=== PATIENT | female | born 1990 | race Caucasian/White ===

== ENCOUNTER 2016-11-26 18:22 | Emergency (ER) | payer OTHER ==
[~2016-11-26] VITALS: Wt 77.1 kg
[~2016-11-26 18:22] MED LIST: 'PARAFON FORTE500 M1 PO; AMOXICILLIN250 MG PO; AMOXICILLIN500 MG PO; ANAPROX DS550 MG PO; ANTIVERT/2525 MG PO; ANUSOL-HC25 MG R; BIRTH CONTROL1 EACH PO; CELEXA20 MG PO; CIPROFLOXACIN500 MG PO; CLARITIN10 MG PO; CLEOCIN HCL300 MG PO; COLACE100 MG PO; HYDROCODONE BIT1 T11 PO; IMPLANON68 MG ID; LAMICTAL25 MG PO; MEDROL DOSEPAK4 MG PO; MOTRIN800 MG PO; NAPROSYN500 MG PO; NKHM; NORCO 325 MG-51 TAB PO; PEN-VK500 MG PO; PENICILLIN VK500 MG PO; PERIDEX 480 ML480 ML PO; PHENERGAN W/ DE30 ML PO; PONSTEL250 MG PO; PREDNICOT10 MG PO; PREDNICOT20 MG PO; PROAIR HFA0.09 MG/AC INH; ROBITUSSIN AC 10 MG/ PO; TRAZODONE50 MG PO; TRIMOX500 MG PO; ZANTAC 150150 MG PO; ZITHROMAX250 MG PO; ZYRTEC10 M1 PO
[2016-11-26] MEDS ORDERED: ZITHROMAX250 MG PO (19:44)
[2016-11-26] MEDS ORDERED: PREDNISONE20 M1 PO (19:44)
== END 2016-11-26 20:12 | disposition home or self-care (01) ==
LOC: ED 18:22
DX: J20.9 Acute bronchitis, unspecified (principal); F17.200 Nicotine dependence, unspecified, uncomplicated; Z79.899 Other long term (current) drug therapy

== ENCOUNTER 2017-03-09 10:48 | Emergency (ER) | payer OTHER ==
[~2017-03-09] VITALS: Ht 157.4 cm; Wt 77.1 kg
[~2017-03-09 10:48] MED LIST changes: +PREDNISONE20 M1 PO
[2017-03-09] MEDS ORDERED: FLUOXETINE HYDR20 M1 PO (11:13)
[2017-03-09] MEDS ORDERED: HYDROXYZINE HCL25 M1 PO (11:14)
[2017-03-09 11:47] LABS: BILIRUBIN NEGATIVE (NEGATIVE); BLOOD NEGATIVE (NEGATIVE); CLARITY CLOUDY (CLEAR); COLOR YELLOW (YELLOW); GLUCOSE NEGATIVE (NEGATIVE); KETONE NEGATIVE (NEGATIVE); LEUKO ESTERASE TRACE (NEGATIVE); NITRITE NEGATIVE (NEGATIVE); PH 6.5 (5.0-9.0); UROBILINOGEN 0.2 E.U./dl (0.2-1.0)
[2017-03-09 11:54] LABS: BASO # 0.1 10*3/uL (0.0-0.1); BASO % 0.8 % (0.0-1.0); EOS # 0.4 10*3/uL (0.0-0.4); EOS % 4.1 % (1.0-4.0); HEMATOCRIT 42.4 % (37.0-47.0); HEMOGLOBIN 13.7 g/dl (12.0-16.0); LYMPH # 2.7 10*3/uL (1.3-4.4); LYMPH % 30.2 % (27.0-41.0); MEAN CELL VOLUME 87.1 fl (81.0-99.0); MEAN CORPUSCULAR HGB 28.1 pg (27.0-31.0); MEAN CORPUSCULAR HGB CONC 32.3 g/dl (33.0-37.0); MEAN PLATELET VOLUME 9.4 fl (9.6-12.3); MONO # 0.9 10*3/uL (0.1-1.0); NEUT # 4.8 10*3/uL (2.3-7.9); NEUT % 54.7 % (47.0-73.0); PLATELET COUNT AUTOMATED 416 10*3/uL (130-400); RED BLOOD COUNT 4.87 10*6/uL (4.10-5.10); RED CELL DISTRI WIDTH 13.6 % (0-14.5); WHITE BLOOD COUNT 8.9 10*3/uL (4.8-10.8)
[2017-03-09 12:07] LABS: BACTERIA 2+
[2017-03-09 12:08] LABS: ALKALINE PHOSPHATASE 76 U/L (45-117); BUN 10 mg/dl (7-24); CHLORIDE 108 mmol/L (98-107); CREATININE 0.94 mg/dL (0.55-1.02); POTASSIUM 4.3 mmol/L (3.5-5.1); SGOT/AST 16 IU/L (3-35); SGPT/ALT 37 U/L (12-78); SODIUM 141 mmol/L (136-145); TOTAL PROTEIN 7.7 gm/dL (6.4-8.2)
[2017-03-09] MEDS ORDERED: IMODIUM A-D2 M2 PO (12:24)
[2017-03-09] MEDS ORDERED: ZOFRAN ODT4 MG SL (12:24)
== END 2017-03-09 12:29 | disposition home or self-care (01) ==
LOC: ED 10:48
PROVIDERS: Emergency Medicine
DX: K52.9 Noninfective gastroenteritis and colitis, unspecified (principal); F17.200 Nicotine dependence, unspecified, uncomplicated; Z79.899 Other long term (current) drug therapy

== ENCOUNTER 2017-03-24 14:31 | Emergency (ER) | payer OTHER ==
[~2017-03-24] VITALS: Ht 160 cm; Wt 77.1 kg
[~2017-03-24 14:31] MED LIST changes: +FLUOXETINE HYDR20 M1 PO; +HYDROXYZINE HCL25 M1 PO; +IMODIUM A-D2 M2 PO; +ZOFRAN ODT4 MG SL
[2017-03-24] MEDS ORDERED: ROBITUSSIN DM 105 ML PO (14:51)
[2017-03-24] MEDS ORDERED: CLARITIN10 MG PO (14:51)
[2017-03-24] MEDS ORDERED: PREDNISONE10 MG PO (14:51)
[2017-03-24] MEDS ORDERED: FLONASE ALLERG9.9 ML NAS (14:51)
== END 2017-03-24 16:11 | disposition home or self-care (01) ==
LOC: ED 14:31
DX: J20.9 Acute bronchitis, unspecified (principal); R03.0 Elevated blood-pressure reading, without diagnosis of hypertension; F17.200 Nicotine dependence, unspecified, uncomplicated; Z79.899 Other long term (current) drug therapy

== ENCOUNTER 2017-06-07 08:58 | Emergency (ER) | payer OTHER ==
[~2017-06-07 08:58] MED LIST changes: +FLONASE ALLERG9.9 ML NAS; +PREDNISONE10 MG PO; +ROBITUSSIN DM 105 ML PO
[2017-06-07] MEDS ORDERED: ROBAXIN500 M1 PO (09:47)
[2017-06-07] MEDS ORDERED: MOBIC7.5 MG PO (09:47)
== END 2017-06-07 09:56 | disposition home or self-care (01) ==
LOC: ED 08:58
DX: S13.4XXA Sprain of ligaments of cervical spine, initial encounter (principal); Z79.899 Other long term (current) drug therapy; X58.XXXA Exposure to other specified factors, initial encounter; Y93.89 Activity, other specified; Y92.89 Other specified places as the place of occurrence of the external cause; Y99.8 Other external cause status

== ENCOUNTER 2017-07-30 14:14 | Emergency (ER) | payer OTHER ==
[~2017-07-30] VITALS: Ht 160 cm; Wt 81.6 kg
[~2017-07-30 14:14] MED LIST changes: +MOBIC7.5 MG PO; +ROBAXIN500 M1 PO
[2017-07-30] MEDS ORDERED: PREDNISONE20 M1 PO (14:52)
== END 2017-07-30 14:56 | disposition home or self-care (01) ==
LOC: ED 14:14
DX: L20.89 Other atopic dermatitis (principal); Z79.899 Other long term (current) drug therapy

== ENCOUNTER 2017-08-04 07:46 | Emergency (ER) | payer OTHER ==
[~2017-08-04] VITALS: Ht 157.4 cm; Wt 81.6 kg
== END 2017-08-04 10:35 | disposition home or self-care (01) ==
LOC: ED 07:46
DX: S92.511A Displaced fracture of proximal phalanx of right lesser toe(s), initial encounter for closed fracture (principal); F17.200 Nicotine dependence, unspecified, uncomplicated; Z79.899 Other long term (current) drug therapy; X58.XXXA Exposure to other specified factors, initial encounter; Y93.89 Activity, other specified; Y92.89 Other specified places as the place of occurrence of the external cause; Y99.9 Unspecified external cause status

== ENCOUNTER 2017-12-07 16:01 | Emergency (ER) | payer OTHER ==
[~2017-12-07] VITALS: Ht 157.4 cm; Wt 77.1 kg
[2017-12-07] MEDS ORDERED: PREDNISONE20 M1 PO (17:01)
[2017-12-07] MEDS ORDERED: NAPROSYN500 MG PO (17:01)
[2017-12-07] MEDS ORDERED: LIDEX 0.05% CRE15 GM T (17:01)
== END 2017-12-07 17:41 | disposition home or self-care (01) ==
LOC: ED 16:01
DX: M25.531 Pain in right wrist (principal); L40.9 Psoriasis, unspecified; F17.200 Nicotine dependence, unspecified, uncomplicated; Z79.899 Other long term (current) drug therapy

== ENCOUNTER 2018-05-29 09:05 | Emergency (ER) | payer SELFPAY ==
[~2018-05-29] VITALS: Wt 74.8 kg
[~2018-05-29 09:05] MED LIST changes: +LIDEX 0.05% CRE15 GM T
[2018-05-29] MEDS ORDERED: TAMIFLU 75MG CA75 MG PO (09:57)
== END 2018-05-29 10:01 | disposition home or self-care (01) ==
LOC: ED 09:05
DX: R05 Cough (principal); R50.9 Fever, unspecified; R09.89 Other specified symptoms and signs involving the circulatory and respiratory systems; R19.7 Diarrhea, unspecified; Z79.899 Other long term (current) drug therapy

== ENCOUNTER 2018-09-18 00:33 | Emergency (ER) | payer OTHER ==
[~2018-09-18] VITALS: Ht 157.4 cm; Wt 68.0 kg
[~2018-09-18 00:33] MED LIST changes: +TAMIFLU 75MG CA75 MG PO
[2018-09-18 01:12] LABS: BILIRUBIN NEGATIVE (NEGATIVE); BLOOD NEGATIVE (NEGATIVE); CLARITY SL CLOUDY (CLEAR); COLOR YELLOW (YELLOW); GLUCOSE NEGATIVE (NEGATIVE); KETONE NEGATIVE (NEGATIVE); LEUKO ESTERASE NEGATIVE (NEGATIVE); NITRITE NEGATIVE (NEGATIVE); SPECIFIC GRAVITY >= 1.030 (1.005-1.030); UROBILINOGEN 0.2 E.U./dl (0.2-1.0)
[2018-09-18 01:13] LABS: BASO # 0.1 10*3/uL (0.0-0.1); BASO % 0.6 % (0.0-1.0); EOS # 0.2 10*3/uL (0.0-0.4); EOS % 1.9 % (1.0-4.0); HEMATOCRIT 40.1 % (37.0-47.0); HEMOGLOBIN 13.1 g/dl (12.0-16.0); LYMPH # 4.6 10*3/uL (1.3-4.4); LYMPH % 43.8 % (27.0-41.0); MEAN CELL VOLUME 88.9 fl (81.0-99.0); MEAN CORPUSCULAR HGB CONC 32.7 g/dl (33.0-37.0); MONO # 0.9 10*3/uL (0.1-1.0); MONO % 8.2 % (3.0-9.0); NEUT # 4.7 10*3/uL (2.3-7.9); NEUT % 45.2 % (47.0-73.0); PLATELET COUNT AUTOMATED 362 10*3/uL (130-400); RED BLOOD COUNT 4.51 10*6/uL (4.10-5.10); WHITE BLOOD COUNT 10.5 10*3/uL (4.8-10.8)
[2018-09-18 01:24] LABS: EPITHELIAL CELLS 20-25; WBC 0-2 wbc/hpf (0-5)
[2018-09-18 01:26] LABS: BUN 14 mg/dl (7-24); CHLORIDE 106 mmol/L (98-107); CREATININE 0.94 mg/dL (0.55-1.02); POTASSIUM 3.5 mmol/L (3.5-5.1); SODIUM 140 mmol/L (136-145)
[2018-09-18 01:31] LABS: BETA-HCG, QUANT < 1.0 mIU/mL (1-3)
== END 2018-09-18 02:34 | disposition home or self-care (01) ==
LOC: ED 00:33
PROVIDERS: Emergency Medicine Emergency Medical Services
DX: S39.012A Strain of muscle, fascia and tendon of lower back, initial encounter (principal); R10.9 Unspecified abdominal pain; M25.551 Pain in right hip; X58.XXXA Exposure to other specified factors, initial encounter; Y93.89 Activity, other specified; Y92.89 Other specified places as the place of occurrence of the external cause; Y99.0 Civilian activity done for income or pay

== ENCOUNTER 2019-02-11 00:37 | Emergency (ER) | payer OTHER ==
[~2019-02-11] VITALS: Ht 160 cm; Wt 63.5 kg
[2019-02-11 01:54] LABS: BILIRUBIN NEGATIVE (NEGATIVE); BLOOD TRACE-INTACT (NEGATIVE); CLARITY SL CLOUDY (CLEAR); COLOR YELLOW (YELLOW); GLUCOSE NEGATIVE (NEGATIVE); KETONE 1+ (NEGATIVE); LEUKO ESTERASE NEGATIVE (NEGATIVE); NITRITE NEGATIVE (NEGATIVE); PH 6.5 (5.0-9.0); UROBILINOGEN 0.2 E.U./dl (0.2-1.0)
[2019-02-11 02:01] LABS: BACTERIA TRACE; RBC 0-2 rbc/hpf (0-2); WBC 0-2 wbc/hpf (0-5)
[2019-02-11] MEDS ORDERED: CYCLOBENZAPRINE10 MG PO (02:44)
== END 2019-02-11 02:55 | disposition home or self-care (01) ==
LOC: ED 00:37
PROVIDERS: Emergency Medicine
DX: S29.012A Strain of muscle and tendon of back wall of thorax, initial encounter (principal); X58.XXXA Exposure to other specified factors, initial encounter; Y93.89 Activity, other specified; Y92.89 Other specified places as the place of occurrence of the external cause; Y99.8 Other external cause status

== ENCOUNTER 2019-03-07 15:45 | Emergency (ER) | payer OTHER ==
[~2019-03-07] VITALS: Ht 160 cm; Wt 63.5 kg
[~2019-03-07 15:45] MED LIST changes: +CYCLOBENZAPRINE10 MG PO
[2019-03-07] MEDS ORDERED: AMOXICILLIN500 M3 PO (16:49)
== END 2019-03-07 16:58 | disposition home or self-care (01) ==
LOC: ED 15:45
DX: B34.9 Viral infection, unspecified (principal); J02.9 Acute pharyngitis, unspecified; R11.10 Vomiting, unspecified; R50.9 Fever, unspecified

== ENCOUNTER 2019-05-18 14:32 | Emergency (ER) | payer OTHER ==
[~2019-05-18] VITALS: Ht 157.4 cm; Wt 61.2 kg
[~2019-05-18 14:32] MED LIST changes: +AMOXICILLIN500 M3 PO
[2019-05-18] MEDS ORDERED: EFFEXOR XR75 M1 PO (14:47)
[2019-05-18 15:13] LABS: BASO # 0.1 10*3/uL (0.0-0.1); BASO % 0.6 % (0.0-1.0); EOS # 0.1 10*3/uL (0.0-0.4); EOS % 0.6 % (1.0-4.0); HEMATOCRIT 39.2 % (37.0-47.0); HEMOGLOBIN 12.7 g/dl (12.0-16.0); LYMPH # 2.8 10*3/uL (1.3-4.4); LYMPH % 26.4 % (27.0-41.0); MEAN CELL VOLUME 89.7 fl (81.0-99.0); MEAN CORPUSCULAR HGB 29.1 pg (27.0-31.0); MEAN CORPUSCULAR HGB CONC 32.4 g/dl (33.0-37.0); MEAN PLATELET VOLUME 9.6 fl (9.6-12.3); MONO # 0.8 10*3/uL (0.1-1.0); MONO % 7.7 % (3.0-9.0); NEUT # 6.8 10*3/uL (2.3-7.9); NEUT % 64.4 % (47.0-73.0); PLATELET COUNT AUTOMATED 373 10*3/uL (130-400); RED BLOOD COUNT 4.37 10*6/uL (4.10-5.10); RED CELL DISTRI WIDTH 13.1 % (0-14.5); WHITE BLOOD COUNT 10.5 10*3/uL (4.8-10.8)
[2019-05-18 15:27] LABS: ALBUMIN 4.2 gm/dl (3.1-4.5); ALKALINE PHOSPHATASE 53 U/L (45-117); BUN 11 mg/dl (7-24); CHLORIDE 104 mmol/L (98-107); CREATININE 0.83 mg/dL (0.55-1.02); POTASSIUM 3.6 mmol/L (3.5-5.1); SGOT/AST 13 IU/L (3-35); SGPT/ALT 22 U/L (12-78); SODIUM 139 mmol/L (136-145); TOTAL PROTEIN 7.3 gm/dL (6.4-8.2)
[2019-05-18] MEDS ORDERED: CYCLOBENZAPRINE5 M3 PO (15:57)
[2019-05-18] MEDS ORDERED: Motrin,Rufen800 MG PO (15:57)
== END 2019-05-18 16:06 | disposition home or self-care (01) ==
LOC: ED 14:32
PROVIDERS: Physician Assistant
DX: M54.12 Radiculopathy, cervical region (principal); M25.512 Pain in left shoulder; Z79.899 Other long term (current) drug therapy

== ENCOUNTER 2020-01-11 10:56 | Emergency (ER) | payer OTHER ==
[~2020-01-11] VITALS: Ht 160 cm; Wt 65.8 kg
[~2020-01-11 10:56] MED LIST changes: +CYCLOBENZAPRINE5 M3 PO; +EFFEXOR XR75 M1 PO; +Motrin,Rufen800 MG PO
[2020-01-11] MEDS ORDERED: ERYTHROMYCIN OPH1 GM OPH (11:39)
[2020-01-11] MEDS ORDERED: IBUPROFEN600 MG PO (11:39)
== END 2020-01-11 11:42 | disposition home or self-care (01) ==
LOC: ED 10:56
DX: H00.011 Hordeolum externum right upper eyelid (principal); Z79.899 Other long term (current) drug therapy

== ENCOUNTER 2020-01-17 22:48 | Emergency (ER) | payer OTHER ==
[~2020-01-17] VITALS: Ht 157.4 cm; Wt 65.8 kg
[~2020-01-17 22:48] MED LIST changes: +ERYTHROMYCIN OPH1 GM OPH; +IBUPROFEN600 MG PO
[2020-01-18] MEDS ORDERED: PREDNISONE20 M1 PO (01:01)
[2020-01-18] MEDS ORDERED: ROBITUSSIN DM 101 OZ PO (01:01)
== END 2020-01-18 01:30 | disposition home or self-care (01) ==
LOC: ED 22:48
DX: J20.9 Acute bronchitis, unspecified (principal); F41.9 Anxiety disorder, unspecified; F32.9 Major depressive disorder, single episode, unspecified; Z79.899 Other long term (current) drug therapy

== ENCOUNTER → 2020-06-21 | Outpatient (CLI) | payer OTHER ==
[~2020-06-21] MED LIST changes: +ROBITUSSIN DM 101 OZ PO
== END | disposition home or self-care (01) ==
LOC: US 12:43
PROVIDERS: ATTEND Nurse Practitioner Women's Health
DX: O34.81 Maternal care for other abnormalities of pelvic organs, first trimester (principal); N83.12 Corpus luteum cyst of left ovary; Z3A.10 10 weeks gestation of pregnancy

== ENCOUNTER → 2020-08-18 | Outpatient (CLI) | payer OTHER ==
[2020-08-18 13:52] LABS: BASO % 0.4 % (0.0-1.0); EOS # 0.2 10*3/uL (0.0-0.4); HEMATOCRIT 34.1 % (37.0-47.0); LYMPH # 2.3 10*3/uL (1.3-4.4); LYMPH % 22.4 % (27.0-41.0); MEAN CELL VOLUME 90.2 fl (81.0-99.0); MEAN CORPUSCULAR HGB 28.3 pg (27.0-31.0); MEAN CORPUSCULAR HGB CONC 31.4 g/dl (33.0-37.0); MONO # 0.8 10*3/uL (0.1-1.0); MONO % 7.4 % (3.0-9.0); NEUT # 6.9 10*3/uL (2.3-7.9); NEUT % 67.2 % (47.0-73.0); PLATELET COUNT AUTOMATED 474 10*3/uL (130-400); RED BLOOD COUNT 3.78 10*6/uL (4.10-5.10); RED CELL DISTRI WIDTH 12.9 % (0-14.5); WHITE BLOOD COUNT 10.3 10*3/uL (4.8-10.8)
== END | disposition home or self-care (01) ==
LOC: LAB 13:23 → US 14:30
PROVIDERS: ATTEND Obstetrics & Gynecology
DX: Z34.02 Encounter for supervision of normal first pregnancy, second trimester (principal); Z3A.19 19 weeks gestation of pregnancy

== ENCOUNTER 2020-12-19 19:12 | Emergency (ER) | payer OTHER ==
[~2020-12-19] VITALS: Ht 157.4 cm; Wt 70.3 kg
[2020-12-19 19:52] LABS: BILIRUBIN Negative (Negative); BLOOD Trace-Lysed (Negative); CLARITY Clear (Clear); COLOR Yellow (Yellow); GLUCOSE Negative (Negative); KETONE Negative (Negative); LEUKO ESTERASE 2+ (Negative); NITRITE Negative (Negative); PH 6.5 (4.5-8.0)
[2020-12-19 20:11] LABS: BACTERIA TRACE; MUCOUS TRACE; WBC 21-30 wbc/hpf (0-5)
[2020-12-19 21:25] LABS: BASO % 0.3 % (0.0-1.0); EOS % 0.1 % (1.0-4.0); HEMATOCRIT 35.8 % (37.0-47.0); LYMPH # 1.2 10*3/uL (1.3-4.4); LYMPH % 11.7 % (27.0-41.0); MEAN CELL VOLUME 88.2 fl (81.0-99.0); MEAN CORPUSCULAR HGB 27.8 pg (27.0-31.0); MEAN CORPUSCULAR HGB CONC 31.6 g/dl (33.0-37.0); MEAN PLATELET VOLUME 8.2 fl (9.6-12.3); MONO # 0.4 10*3/uL (0.1-1.0); MONO % 3.7 % (3.0-9.0); NEUT # 8.5 10*3/uL (2.3-7.9); NEUT % 83.4 % (47.0-73.0); PLATELET COUNT AUTOMATED 577 10*3/uL (130-400); RED BLOOD COUNT 4.06 10*6/uL (4.10-5.10); RED CELL DISTRI WIDTH 12.9 % (0-14.5); WHITE BLOOD COUNT 10.1 10*3/uL (4.8-10.8)
[2020-12-19 21:40] LABS: ALBUMIN 2.7 gm/dl (3.1-4.5); ALKALINE PHOSPHATASE 98 U/L (45-117); BUN 8 mg/dl (7-24); CHLORIDE 107 mmol/L (98-107); CREATININE 0.83 mg/dL (0.55-1.02); POTASSIUM 3.9 mmol/L (3.5-5.1); SGOT/AST 11 IU/L (3-35); SGPT/ALT 23 U/L (12-78); SODIUM 138 mmol/L (136-145); TOTAL PROTEIN 7.2 gm/dL (6.4-8.2)
[2020-12-20] MEDS ORDERED: CEPHALEXIN500 M1 PO (00:55)
== END 2020-12-20 01:03 | disposition home or self-care (01) ==
LOC: ED 19:12
PROVIDERS: Emergency Medicine
DX: N39.0 Urinary tract infection, site not specified (principal); Z20.822 Contact with and (suspected) exposure to COVID-19; F17.200 Nicotine dependence, unspecified, uncomplicated; Z79.899 Other long term (current) drug therapy

== ENCOUNTER → 2021-03-17 | Outpatient (CLI) | payer OTHER ==
[~2021-03-17] MED LIST changes: +CEPHALEXIN500 M1 PO
== END | disposition home or self-care (01) ==
LOC: COVID19 16:32
PROVIDERS: ATTEND Internal Medicine
DX: U07.1 COVID-19 (principal)

== ENCOUNTER → 2021-08-29 | Outpatient (CLI) | payer OTHER | END | disposition home or self-care (01) | LOC: RAD 11:25 | PROVIDERS: ATTEND Family Medicine | DX: M25.541 Pain in joints of right hand (principal) ==

== ENCOUNTER → 2021-10-14 | Outpatient (CLI) | payer OTHER | END | disposition home or self-care (01) | LOC: RAD 14:05 | PROVIDERS: ATTEND Family Medicine | DX: M79.642 Pain in left hand (principal) ==

== ENCOUNTER → 2021-12-06 | Outpatient (CLI) | payer OTHER ==
[2021-12-07 08:08] LABS: RHEUMATOID FACTOR <10.0 IU/mL (<14.0)
== END | disposition home or self-care (01) ==
LOC: LAB 09:44
PROVIDERS: ATTEND Family Medicine
DX: M79.642 Pain in left hand (principal); M79.641 Pain in right hand

== ENCOUNTER 2022-03-01 20:10 | Emergency (ER) | payer OTHER ==
[~2022-03-01] VITALS: Ht 157.4 cm; Wt 63.5 kg
== END 2022-03-02 00:10 | disposition left against medical advice (07) ==
LOC: ED 20:10
DX: Z53.21 Procedure and treatment not carried out due to patient leaving prior to being seen by health care provider (principal)

== ENCOUNTER 2022-05-31 20:32 | Emergency (ER) | payer OTHER ==
[~2022-05-31] VITALS: Ht 160 cm; Wt 68.0 kg
[2022-05-31 21:11] LABS: HEMATOCRIT 42.7 % (37.0-47.0); MEAN CELL VOLUME 87.3 fl (81.0-99.0); MEAN CORPUSCULAR HGB CONC 32.1 g/dl (33.0-37.0); MEAN PLATELET VOLUME 8.9 fl (9.6-12.3); PLATELET COUNT AUTOMATED 357 10*3/uL (130-400); RED BLOOD COUNT 4.89 10*6/uL (4.10-5.10); RED CELL DISTRI WIDTH 13.2 % (0-14.5)
[2022-05-31 21:21] LABS: MANUAL DIFF REFLEX YES
[2022-05-31 21:27] LABS: ALKALINE PHOSPHATASE 57 U/L (46-116); BUN 15 mg/dl (9-23); CHLORIDE 109 mmol/L (98-107); POTASSIUM 3.4 mmol/L (3.4-5.1); SGPT/ALT 18 U/L (10-49); TOTAL PROTEIN 7.1 gm/dL (6.0-8.0)
[2022-05-31 21:43] LABS: PLATELET SUFFICIENCY NORMAL (NORMAL); TOTAL CELLS COUNTED 100 #CELLS; TOXIC GRANULATION SLIGHT
== END 2022-05-31 22:47 | disposition home or self-care (01) ==
LOC: ED 20:32
PROVIDERS: Internal Medicine
DX: B34.9 Viral infection, unspecified (principal); Z79.899 Other long term (current) drug therapy

== ENCOUNTER 2022-08-30 07:28 | Emergency (ER) | payer OTHER ==
[~2022-08-30] VITALS: Ht 157.4 cm; Wt 59.0 kg
[2022-08-30] MEDS ORDERED: CYCLOBENZAPRINE10 MG PO (08:01)
[2022-08-30] MEDS ORDERED: PREDNISONE50 MG PO (08:01)
== END 2022-08-30 08:51 | disposition home or self-care (01) ==
LOC: ED 07:28
DX: S39.012A Strain of muscle, fascia and tendon of lower back, initial encounter (principal); F41.9 Anxiety disorder, unspecified; F32.A Depression, unspecified; Z98.890 Other specified postprocedural states; X58.XXXA Exposure to other specified factors, initial encounter; Y93.89 Activity, other specified; Y92.89 Other specified places as the place of occurrence of the external cause; Y99.8 Other external cause status

== ENCOUNTER → 2022-09-11 | Outpatient (CLI) | payer OTHER ==
[~2022-09-11] MED LIST changes: +PREDNISONE50 MG PO
== END | disposition home or self-care (01) ==
LOC: RAD 10:11
PROVIDERS: ATTEND Family Medicine
DX: M54.50 Low back pain, unspecified (principal)

== ENCOUNTER 2024-06-23 09:16 | Emergency (ER) | payer SELFPAY ==
[~2024-06-23] VITALS: Ht 157.4 cm; Wt 71.7 kg
[2024-06-23] MEDS ORDERED: LORazepam 0.5 MG TAB PO ONE (10:10)
[2024-06-23 10:33] LABS: BASO % 0.6 % (0.0-1.0); EOS # 0.1 10*3/uL (0.0-0.4); EOS % 1.1 % (1.0-4.0); HEMATOCRIT 44.4 % (37.0-47.0); MEAN CELL VOLUME 88.6 fl (81.0-99.0); MEAN CORPUSCULAR HGB 27.7 pg (27.0-31.0); MEAN CORPUSCULAR HGB CONC 31.3 g/dl (33.0-37.0); MEAN PLATELET VOLUME 9.2 fl (9.6-12.3); MONO # 0.5 10*3/uL (0.1-1.0); MONO % 7.8 % (3.0-9.0); NEUT # 3.5 10*3/uL (2.3-7.9); NEUT % 55.2 % (47.0-73.0); PLATELET COUNT AUTOMATED 398 10*3/uL (130-400); RED BLOOD COUNT 5.01 10*6/uL (4.10-5.10); RED CELL DISTRI WIDTH 12.7 % (0-14.5); WHITE BLOOD COUNT 6.3 10*3/uL (4.8-10.8)
[2024-06-23 10:55] LABS: ALKALINE PHOSPHATASE 63 U/L (46-116); BUN 9 mg/dl (9-23); CHLORIDE 105 mmol/L (98-107); POTASSIUM 4.3 mmol/L (3.4-5.1); SGPT/ALT 28 U/L (5-49); TOTAL PROTEIN 8.3 gm/dL (6.0-8.0)
[2024-06-23] MEDS ORDERED: VISTARIL25 MG PO (11:38)
== END 2024-06-23 11:57 | disposition home or self-care (01) ==
LOC: ED 09:16
PROVIDERS: Internal Medicine
DX: F41.9 Anxiety disorder, unspecified (principal); R07.89 Other chest pain; M54.9 Dorsalgia, unspecified; F17.200 Nicotine dependence, unspecified, uncomplicated

== ENCOUNTER 2024-10-01 13:20 | Emergency (ER) | payer SELFPAY ==
[~2024-10-01] VITALS: Ht 157.4 cm; Wt 59.0 kg
[~2024-10-01 13:20] MED LIST changes: +VISTARIL25 MG PO
[2024-10-01 14:19] LABS: BASO # 0.0 10*3/uL (0.0-0.1); BASO % 0.6 % (0.0-1.0); EOS # 0.1 10*3/uL (0.0-0.4); EOS % 1.5 % (1.0-4.0); MEAN CELL VOLUME 89.5 fl (81.0-99.0); MEAN CORPUSCULAR HGB 28.5 pg (27.0-31.0); MEAN PLATELET VOLUME 9.2 fl (9.6-12.3); MONO # 0.6 10*3/uL (0.1-1.0); MONO % 8.7 % (3.0-9.0); NEUT # 3.3 10*3/uL (2.3-7.9); NEUT % 47.8 % (47.0-73.0); NUCLEATED RED BLOOD CELL 0.0 % (0.0-0.0); NUCLEATED RED BLOOD CELL 0.0 10*3/uL (0.0-0.0); PLATELET COUNT AUTOMATED 335 10*3/uL (130-400); RED CELL DISTRI WIDTH 13.0 % (0-14.5)
[2024-10-01 14:37] LABS: BUN 12 mg/dl (9-23)
[2024-10-01] MEDS ORDERED: MIRALAX POWDER17 G1 PO (15:16)
[2024-10-01] MEDS ORDERED: COLACE100 MG PO (15:16)
== END 2024-10-01 15:32 | disposition home or self-care (01) ==
LOC: ED 13:20
PROVIDERS: Nurse Practitioner Family
DX: K64.8 Other hemorrhoids (principal); F32.A Depression, unspecified; F41.9 Anxiety disorder, unspecified; Z79.899 Other long term (current) drug therapy; Z98.890 Other specified postprocedural states

== ENCOUNTER 2024-10-12 10:39 | Emergency (ER) | payer SELFPAY ==
[~2024-10-12] VITALS: Ht 162.5 cm; Wt 54.4 kg
[~2024-10-12 10:39] MED LIST changes: +MIRALAX POWDER17 G1 PO
[2024-10-12] MEDS ORDERED: PREDNISONE50 MG PO (12:03)
== END 2024-10-12 12:17 | disposition home or self-care (01) ==
LOC: ED 10:39
DX: R68.84 Jaw pain (principal); R51.9 Headache, unspecified; F10.90 Alcohol use, unspecified, uncomplicated; Y90.9 Presence of alcohol in blood, level not specified

== ENCOUNTER 2024-10-15 09:46 | Emergency (ER) | payer SELFPAY ==
[~2024-10-15] VITALS: Ht 160 cm; Wt 59.0 kg
[2024-10-15] MEDS ORDERED: SODIUM CHLORIDE 0.9% 1,000 ML IV ONE (10:05)
[2024-10-15] MEDS ORDERED: Ondansetron Hydrochloride 4 MG/2 ML VIAL IV ONE (10:05)
[2024-10-15 10:18] LABS: BASO # 0.0 10*3/uL (0.0-0.1); BASO % 0.1 % (0.0-1.0); EOS # 0.0 10*3/uL (0.0-0.4); EOS % 0.0 % (1.0-4.0); MEAN CELL VOLUME 89.6 fl (81.0-99.0); MEAN CORPUSCULAR HGB 28.6 pg (27.0-31.0); MEAN PLATELET VOLUME 9.5 fl (9.6-12.3); MONO # 0.6 10*3/uL (0.1-1.0); MONO % 6.6 % (3.0-9.0); NEUT # 7.8 10*3/uL (2.3-7.9); NEUT % 85.7 % (47.0-73.0); NUCLEATED RED BLOOD CELL 0.0 % (0.0-0.0); NUCLEATED RED BLOOD CELL 0.0 10*3/uL (0.0-0.0); PLATELET COUNT AUTOMATED 334 10*3/uL (130-400); RED CELL DISTRI WIDTH 13.0 % (0-14.5)
[2024-10-15 10:35] LABS: BILIRUBIN Negative (Negative); BLOOD 1+ (Negative); CLARITY Clear (Clear); COLOR Yellow (Yellow); KETONE Negative (Negative); LEUKO ESTERASE 1+ (Negative); NITRITE Negative (Negative); PH 7.0 (4.5-8.0); SPECIFIC GRAVITY 1.020 (1.001-1.030); UROBILINOGEN 0.2 E.U./dl (0.0-1.0)
[2024-10-15 10:47] LABS: EPITHELIAL CELLS 16-20
[2024-10-15 10:48] LABS: BACTERIA 1+; MUCOUS 1+
[2024-10-15] MEDS ORDERED: ACETAMINOPHEN 325 MG TAB PO ONE (11:15)
[2024-10-15 11:28] LABS: BUN 12 mg/dl (9-23)
[2024-10-15] MEDS ORDERED: Ondansetron4 MG PO (11:38)
== END 2024-10-15 11:49 | disposition home or self-care (01) ==
LOC: ED 09:46
PROVIDERS: Internal Medicine
DX: R11.2 Nausea with vomiting, unspecified (principal); F32.A Depression, unspecified; F41.9 Anxiety disorder, unspecified; Z20.822 Contact with and (suspected) exposure to COVID-19; Z79.899 Other long term (current) drug therapy; Z98.890 Other specified postprocedural states